=== PATIENT | male | born 2000 | race Caucasian/White ===

== ENCOUNTER 2021-12-03 19:52 | Emergency (ER) | payer MEDICARE ==
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
== END 2021-12-04 20:02 | disposition left against medical advice (07) ==
LOC: ED 19:52
DX: R51.9 Headache, unspecified (principal); Z53.21 Procedure and treatment not carried out due to patient leaving prior to being seen by health care provider
CPT/HCPCS: 70450